=== PATIENT | male | born 1950 ===

== ENCOUNTER → 2023-01-13 | Day surgery (SDC) | payer BC ==
[~2023-01-13] MED LIST: Cefuroxime 10 MG/ML SYRINGE EYERT SCH; Lidocaine 1% PF 2 ML SDV INJECT SCH; Pilocarpine 4% Ophth Soln 15 ML Bot EYERT SCH
[2023-01-13] MEDS: Polymyxin B/Trimethoprim 10 ML Bottle EYERT SCH ×3 (10:24→12:09)
[2023-01-13] MEDS: Brimonidine 0.2% Ophth Soln 5 ML Bottle EYERT SCH ×3 (10:29→12:08)
[2023-01-13] MEDS: Phenylephrine 2.5% Ophth Soln 2 ML Bot EYERT SCH ×5 (10:34→11:52)
[2023-01-13] MEDS: Tropicamide 1% Ophth Soln 3 ML Bottle EYERT SCH ×4 (10:39→11:26)
[2023-01-13] MEDS: Tetracaine HCl/PF 0.5% 4 ML Bottle EYEBOTH SCH ×4 (11:35→11:56)
[2023-01-13 12:21] VITALS: BP 141/77; PULSE 64
== END ==
LOC: JD.SDS 11:05
PROVIDERS: ATTEND Ophthalmology
DX: H25.813 Combined forms of age-related cataract, bilateral (principal); H40.9 Unspecified glaucoma; H02.834 Dermatochalasis of left upper eyelid; H02.831 Dermatochalasis of right upper eyelid; H16.103 Unspecified superficial keratitis, bilateral; H16.223 Keratoconjunctivitis sicca, not specified as Sjogren's, bilateral; I48.91 Unspecified atrial fibrillation; M19.90 Unspecified osteoarthritis, unspecified site; E07.9 Disorder of thyroid, unspecified; Z83.518 Family history of other specified eye disorder; Z79.890 Hormone replacement therapy; Z79.899 Other long term (current) drug therapy
CPT/HCPCS: 66984; A9270; J0697; V2632; J3490